=== PATIENT | male | born 1965 | race Caucasian/White ===

== ENCOUNTER 2023-05-19 19:39 | Emergency (ER) | payer OTHER, MEDICAID, SELFPAY ==
[2023-05-19 19:43] VITALS: BP 134/88; PULSE 74; RESP 18; TEMP 36.6; O2SAT 99; BMI 27.5
--- NOTE | 2023-05-19 19:48 | DI.RAD.S_ITS ---
PROCEDURE: XR ANKLE LT MIN 3V INDICATIONS: snap/pop/pain TECHNIQUE: 3 views of the ankle were acquired. COMPARISON: None. FINDINGS: Bones: No fractures or dislocations. Ankle mortise is normally aligned. No suspicious bony lesions. Soft tissues: No tibiotalar joint effusion. Achilles tendon appears normal. Soft tissue swelling is prominent over the lateral malleolus. IMPRESSION: Prominent soft tissue swelling over the ankle especially laterally, indicating potential for ligamentous injury but no fracture or traumatic malalignment is seen. Dictated by: Felix Mustafa M.D. on 05/19/2023 at 20:25 Approved by: Felix Mustafa M.D. on 05/19/2023 at 20:26
--- NOTE | 2023-05-19 19:55 | ED.LOWEXIN ---
HPI - Extremity Injury (Lower) General Chief Complaint: Extremity Injury, Lower Stated Complaint: Twisted ankle Time Seen by Provider: 05/19/23 19:51 Source: patient Mode of arrival: Wheelchair History of Present Illness HPI Narrative: 57-year-old male smoker with noncontributory medical history presents with his significant other for evaluation of a right ankle injury. [place] and he tripped and feels a popping sound in his left lateral ankle. The pain increases with ambulation and improves with rest. He states the swelling is actually better than it was earlier. He has no pain in his knee or hip. Denies numbness, tingling or weakness. Related Data Allergies Allergy/AdvReac Type Severity Reaction Status Date / Time No Known Drug Allergies Allergy Verified 05/19/23 19:43 Review of Systems Review of Systems Narrative: GENERAL: Denies chills, fatigue, malaise, fever, sweats. HEENT: Denies sinus pain, ear pain, sore throat, difficulty swallowing, dizziness. RESPIRATORY: Denies dyspnea, cough, wheezing, hemoptysis, sputum. CARDIOVASCULAR: Denies chest pain, palpitations, orthopnea, edema, GASTROINTESTINAL: Denies nausea, vomiting, abdominal pain, diarrhea, constipation, melena. : Denies dysuria, frequency, incontinence, hematuria, urinary retention. MUSCULOSKELETAL: See HPI SKIN: Denies rash, skin lesions, or other NEUROLOGIC: Denies weakness, headache, numbness, change in speech, confusion, seizures, incoordination. PSYCHIATRIC: No concerning psychosocial issues. 12 point review of systems is negative except for those stated above Patient History Social History Smoking Status: Current some day smoker Smoking Status: Current some day smoker tobacco type: cigarettes alcohol intake frequency: 0-2 drinks per day Alcohol type: wine Substance Use Type: does not use Exam Narrative Exam Narrative: GEN: AOx3 and in mild distress EYES: Pupils are equal, round, and reactive to light and accommodation. Extraoccular muscles are intact bilaterally. There is no subconjunctival hemorrhage or exudate. CHEST: Lungs are clear to auscultation bilaterally and free of wheezes, rales, or rhonchi. Heart rate is regular rhythm, there are no murmurs, clicks, rubs, or gallops. There is no chest wall tenderness. ABD: Abdomen is soft and nontender. There is no guarding or rebound. Bowel sounds are normal in all 4 quadrants. There is no mass or organomegaly. EXT: Full but painful range of motion of left ankle with swelling over the lateral malleolus. No pain in knee, negative squeeze test, no ligamentous laxity, closed, isolated and neurovascularly intact SKIN: Warm, pink, and dry. No erythema or rash Initial Vital Signs Initial Vital Signs: Vital Signs Temperature 98 F 05/19/23 19:43 Pulse Rate 74 05/19/23 19:43 Respiratory Rate 18 05/19/23 19:43 Blood Pressure 134/88 05/19/23 19:43 Pulse Oximetry 99 05/19/23 19:43 Oxygen Delivery Method Room Air 05/19/23 19:43 Course Orders Ordered: ED Orders 05/19/23 19:48 XR ankle LT min 3V Stat Vital Signs Vital signs: Vital Signs - 8 hr 05/19/23 19:43 Temperature 98 F Pulse Rate 74 Respiratory Rate 18 Blood Pressure 134/88 Pulse Oximetry 99 Oxygen Delivery Method Room Air MDM - Extremity Injury (Lower) MDM Narrative Medical decision making narrative: [57] year old patient presents with left ankle pain and swelling after inversion type injury Multiple etiologies for patient's symptoms considered including, but not limited to: [Fracture versus dislocation versus sprain versus other] Primary Historian: patient Imaging reviewed: No fracture or dislocation Patient did not want splinting, given crutches instruction by nursing Patient's symptoms improved over duration of stay with above-stated therapies. Findings and discharge diagnosis discussed with patient/family followed by verbalization of understanding Return precautions discussed with patient/family whom verbalize understanding of diagnosis and plan Discharge Plan Departure Patient Disposition: Home Clinical Impression: Ankle sprain and strain Instructions: DI for Ankle Sprain Activity Restrictions/Additional Instructions: *You have been diagnosed with [left ankle sprain. As we discussed your history and physical exam are reassuring and x-ray demonstrates no evidence of fracture or dislocation] *What to do: *Please continue to take your regular medications as directed. [ ] New medication prescriptions sent to your pharmacy: [ ] [ ] New medication written as a paper prescription [x] Tylenol and occasional Motrin for pain *Return to Emergency Department if you should have any new, worsening or concerning symptoms, such as [worsening pain, significant swelling, cold extremities, numbness, tingling, weakness or other bothersome symptoms Weight bearing as tolerated Stand Alone Forms: Patient Portal/API
== END 2023-05-19 20:54 | disposition home or self-care (01) ==
PROVIDERS: Emergency Provider Emergency Medicine
DX: S93.401A Sprain of unspecified ligament of right ankle, initial encounter (principal); S96.911A Strain of unspecified muscle and tendon at ankle and foot level, right foot, initial encounter; W01.0XXA Fall on same level from slipping, tripping and stumbling without subsequent striking against object, initial encounter
CPT/HCPCS: 73610; 99282; 99283